=== PATIENT | male | born 1940 | race Caucasian/White ===

== ENCOUNTER → 2023-01-24 | Outpatient (CLI) | payer MEDICARE, OTHER ==
--- NOTE | 2023-01-24 11:33 | CT ---
EXAMINATION TYPE: CT abdomen pelvis wo con DATE OF EXAM: 01/24/2023 COMPARISON: HISTORY: Hydronephrosis. CT DLP: 1073 mGycm Automated exposure control for dose reduction was used. TECHNIQUE: Helical acquisition of images was performed from the lung bases through the pelvis. FINDINGS: LOWER CHEST : The visualized lung bases are clear. There are no pleural or pericardial effusions. S evere coronary calcifications in the left anterior descending. ABDOMEN: Liver and Biliary system: Normal. Adrenal glands: Normal. Kidneys and ureters: There are no renal stones or hydronephrosis. No ureteral stones are present.. Spleen: Normal. Pancreas: Normal. Gallbladder: Normal. Lymph nodes, Peritoneum and mesentery: There is no mesenteric or retroperitoneal lymphadenopathy. Gastrointestinal tract: There are no dilated loops of bowel or free intraperitoneal air. . The appe ndix is normal. There is moderate to significant descending colonic and sigmoid colonic diverticulosi s without evidence of diverticulitis. Aorta/IVC: There is moderate vascular calcification throughout the abdominal aorta without evidence of aneurysmal dilation.. IVC normal. Abdominal wall: Normal. PELVIS: Fluid: There is no free fluid in the pelvis. Lymph Nodes: There is no pelvic or inguinal lymphadenopathy.. Urinary bladder: There are a few small bladder diverticuli. The prostate is moderately to significan tly enlarged indenting the base of the bladder.. BONES: Scattered degenerative disc and facet changes are seen throughout the spine. There are no acu te osseous abnormalities. ADDITIONAL SIGNIFICANT FINDINGS: None. IMPRESSION: 1. No renal stones or hydronephrosis.. 2. No bowel obstruction or appendicitis. 3. Diverticulosis without evidence of diverticulitis. 4. Prostatomegaly.
== END | disposition home or self-care (01) ==
LOC: RADCTMAIN 10:39
PROVIDERS: ATTEND Urology
DX: N13.30 Unspecified hydronephrosis (principal); N40.0 Benign prostatic hyperplasia without lower urinary tract symptoms; K57.30 Diverticulosis of large intestine without perforation or abscess without bleeding
CPT/HCPCS: 74176